=== PATIENT | male | born 1980 | race Caucasian/White ===

== ENCOUNTER 2019-07-30 20:43 | Emergency (ER) | payer BC ==
[2019-07-30] MEDS ORDERED: ALBUTEROL 2.5 MG/3 ML NEB SOL ONE (23:44)
[2019-07-30] MEDS ORDERED: IPRATROPIUM BROM 0.5MG/2.5ML ONE (23:44)
--- NOTE | 2019-07-31 01:19 | EDPHYS ---
Physician Documentation [facility] Name: Jim Boykin Age: 38 yrs Sex: Male : 1980 Arrival Date: 07/30/2019 Time: 20:48 Bed 7 Private MD: ED Physician Wilman Santos HPI: 07/30 23:30 This 38 yrs old Male presents to ER via Ambulatory with complaints of cp Shortness Of Breath. 23:30 The patient or guardian reports cough, intermittent brown sputum. cp 23:30 Onset: The symptoms/episode began/occurred 4 month(s) ago. cp 23:30 Severity of symptoms: in the emergency department the symptoms are unchanged, despite cp home interventions. 23:30 Associated signs and symptoms: Pertinent positives: sore throat, Pertinent negatives: cp chest pain, diarrhea, fever, vomiting. Patient reports he was seen by PCP in June 2019 and prescribed antibiotics. Symptoms continued so he went to urgent care who prescribed another 10 days of antibiotics and oral steroids. Patient reports he is currently taking steroids. Historical: - Allergies: 23:54 No Known Allergies; bb - Home Meds: 23:54 montelukast oral oral [Active]; Singulair Oral [Active]; Prednisone Oral [Active]; bb - PMHx: 23:54 None; bb - PSHx: 23:54 Ear Tubes; bb - Immunization history:: Last tetanus immunization: up to date Flu vaccine is not up to date. - Social history:: Smoking status: Patient/guardian denies using tobacco, Patient/guardian denies using alcohol, street drugs. - Ebola Screening: : Patient negative for fever greater than or equal to 101.5 degrees Fahrenheit, and additional compatible Ebola Virus Disease symptoms Patient denies exposure to infectious person Patient denies travel to an Ebola-affected area in the 21 days before illness onset. ROS: 23:35 Constitutional: Negative for body aches, chills, fever, poor PO intake. cp 23:35 Eyes: Negative for injury, pain, redness, and discharge. cp 23:35 Cardiovascular: Negative for chest pain, edema, palpitations. cp 23:35 ENT: Positive for sore throat, Negative for drainage from ear(s), ear pain, sinus cp congestion, sinus pain, difficulty swallowing, difficulty handling secretions. 23:35 Respiratory: Positive for cough, Negative for wheezing. 23:35 Abdomen/GI: Negative for abdominal pain, nausea, vomiting, and diarrhea. 23:35 : Negative for urinary symptoms. 23:35 Skin: Negative for cellulitis, rash. 23:35 Neuro: Negative for altered mental status, headache, syncope, weakness. 23:35 All other systems are negative. Exam: 23:45 Constitutional: The patient appears in no acute distress, alert, awake, comfortable, cp non-diaphoretic, non-toxic, well developed, well nourished. 23:45 Head/Face: Normocephalic, atraumatic. cp 23:45 Eyes: Periorbital structures: appear normal, Conjunctiva: normal, no exudate, no cp injection, Sclera: no appreciated abnormality, Lids and lashes: appear normal, bilaterally. 23:45 ENT: External ear(s): are unremarkable, Ear canal(s): are normal, clear, TM's: bulging, cp is not appreciated, bilaterally, dullness, bilaterally, erythema, is not appreciated, bilaterally, Nose: is normal, Mouth: is normal, Posterior pharynx: is normal, airway is patent, no erythema, no exudate. 23:45 Chest/axilla: Inspection: normal, Palpation: is normal, no crepitus, no tenderness. cp 23:45 Cardiovascular: Rate: normal, Rhythm: regular. 23:45 Respiratory: the patient does not display signs of respiratory distress, Respirations: normal, no use of accessory muscles, no retractions, no splinting, no tachypnea, labored breathing, is not present, Breath sounds: bronchial sounds, that are mild, are heard diffusely, decreased breath sounds, are not appreciated, stridor, is not appreciated, wheezing: is not appreciated. 23:45 Abdomen/GI: Inspection: abdomen appears normal, Bowel sounds: active, all quadrants, Palpation: abdomen is soft and non-tender, in all quadrants. 23:45 Back: pain, is absent, ROM is normal. 23:45 Skin: no rash present. 23:45 Neuro: Orientation: to person, place \T\ time. Mentation: is normal, Cerebellar function: is grossly normal, Motor: moves all fours, strength is normal, Sensation: is normal. Vital Signs: 21:17 BP 142 / 86; Pulse 86; Resp 20; Temp 98.5(O); Pulse Ox 97% on R/A; Weight 79.38 kg (R); fc Height 5 ft. 10 in. (177.80 cm) (R); Pain 6/10; 23:54 BP 143 / 83; Pulse 71; Resp 18 S; Pulse Ox 100% on Nebulizer Mask; bb 07/31 01:02 BP 134 / 77; Pulse 68; Resp 18; Pulse Ox 98% on R/A; ea 01:45 BP 130 / 74; Pulse 70; Resp 18; Temp 97.6(TE); Pulse Ox 99% on R/A; ea 07/30 21:17 Body Mass Index 25.11 (79.38 kg, 177.80 cm) fc MDM: 07/30 23:22 Patient medically screened. cp 07/31 00:00 Differential Diagnosis: Bronchitis Asthma Exacerbation Viral Syndrome Pneumonia. cp 01:17 Data reviewed: vital signs, nurses notes, lab test result(s), radiologic studies, plain cp films. 01:17 Test interpretation: by ED physician or midlevel provider: plain radiologic studies, cp chest xray negative for infiltrates. Counseling: I had a detailed discussion with the patient and/or guardian regarding: the historical points, exam findings, and any diagnostic results supporting the discharge/admit diagnosis, lab results, radiology results, the need for outpatient follow up, a family practitioner, to return to the emergency department if symptoms worsen or persist or if there are any questions or concerns that arise at home. Response to treatment: the patient's symptoms have markedly improved after treatment, and as a result, I will discharge patient. 07/31 00:36 Order name: Strep cp 07/31 01:39 Order name: Throat Culture EDKS 07/30 23:28 Order name: XRAY Chest Pa And Lat (2 Views) cp Administered Medications: 07/30 23:47 Drug: Albuterol - atroVENT (3:1) (2.5 mg - 0.5 mg) 3 ml Route: Nebulizer; ea 07/31 00:28 Follow up: Response: No adverse reaction ea Disposition: 06:07 Co-signature as Attending Physician, Wilman Santos MD. pkl Disposition: 07/31/19 01:18 Discharged to Home. Impression: Cough. - Condition is Stable. - Discharge Instructions: Cough, Adult, Form - Excuse from Work, School, or Physical Activity. - Prescriptions for Tessalon Perles 100 mg Oral Capsule - take 1 capsule by ORAL route every 8 hours As needed; 15 capsule. Albuterol Sulfate 90 mcg/actuation - inhale 1-2 puff by INHALATION route every 4-6 hours; 1 Inhaler. - Medication Reconciliation Form, Thank You Letter, Antibiotic Education, Prescription Opioid Use, Work release form form. - Follow up: Private Physician; When: 2 - 3 days; Reason: Recheck today's complaints. - Problem is an ongoing problem. - Symptoms have improved. Signatures: Dispatcher [employer] EDMS Wilman Santos MD MD pkl Chretien, Felicia, RN RN fc Danuta Lyn RN RN bb Joe Ospina PA PA cp Antunez, Elena, RN RN ea Corrections: (The following items were deleted from the chart) 01:54 01:18 07/31/2019 01:18 Discharged to Home. Impression: Cough. Condition is Stable. ea Forms are Medication Reconciliation Form, Thank You Letter, Antibiotic Education, Prescription Opioid Use. Follow up: Private Physician; When: 2 - 3 days; Reason: Recheck today's complaints. Problem is an ongoing problem. Symptoms have improved. cp
--- NOTE | 2019-07-31 01:19 | ER ---
Nurse's Notes [facility] Name: Jim Boykin Age: 38 yrs Sex: Male : 1980 Arrival Date: 07/30/2019 Time: 20:48 Bed 7 Private MD: Diagnosis: Cough Presentation: 07/30 21:17 Presenting complaint: Patient states: that he has a cough with clear sputum, wheezing fc and sore throat. Also having diarrhea but no nausea or vomiting. Pt was seen by PCP and given antibiotics, prednisone and Montelukast. States he is not getting any better. Transition of care: patient was not received from another setting of care. Onset of symptoms was April 2019. Risk Assessment: Do you want to hurt yourself or someone else? Patient reports no desire to harm self or others. Initial Sepsis Screen: Does the patient meet any 2 criteria? No. Patient's initial sepsis screen is negative. Does the patient have a suspected source of infection? No. Patient's initial sepsis screen is negative. Care prior to arrival: None. 21:17 Method Of Arrival: Ambulatory fc 21:17 Acuity: CARLITO 4 fc Triage Assessment: 21:17 General: Appears comfortable, Behavior is calm, cooperative, appropriate for age. Pain: fc Complains of pain in bilateral lower ribs Pain currently is 6 out of 10 on a pain scale. Quality of pain is described as aching, Pain began 3 months Is episodic, Aggravated by coughing. EENT: Reports nasal congestion. Neuro: Level of Consciousness is awake, alert, obeys commands, Oriented to person, place, time, situation, Appropriate for age. Cardiovascular: No deficits noted. Respiratory: Reports cough that is Airway is patent Respiratory effort is even, unlabored, Respiratory pattern is regular, symmetrical, Breath sounds with wheezes Onset: The symptoms/episode began/occurred gradually, the patient has mild shortness of breath. GI: No deficits noted. : No deficits noted. Derm: Skin is pink, warm \T\ dry. Musculoskeletal: Circulation, motion, and sensation intact. Capillary refill < 3 seconds, Range of motion: intact in all extremities. Historical: - Allergies: 23:54 No Known Allergies; bb - Home Meds: 23:54 montelukast oral oral [Active]; Singulair Oral [Active]; Prednisone Oral [Active]; bb - PMHx: 23:54 None; bb - PSHx: 23:54 Ear Tubes; bb - Immunization history:: Last tetanus immunization: up to date Flu vaccine is not up to date. - Social history:: Smoking status: Patient/guardian denies using tobacco, Patient/guardian denies using alcohol, street drugs. - Ebola Screening: : Patient negative for fever greater than or equal to 101.5 degrees Fahrenheit, and additional compatible Ebola Virus Disease symptoms Patient denies exposure to infectious person Patient denies travel to an Ebola-affected area in the 21 days before illness onset. Screenin:25 Abuse screen: Denies threats or abuse. Nutritional screening: No deficits noted. bb Tuberculosis screening: No symptoms or risk factors identified. Fall Risk None identified. Assessment: 23:25 General: Appears in no apparent distress. Behavior is calm, cooperative. Pain: bb Complains of pain in back. Neuro: Level of Consciousness is awake, alert, obeys commands, Oriented to person, place, time, situation. Cardiovascular: No deficits noted. Respiratory: Airway is patent Respiratory effort is even, unlabored, Respiratory pattern is regular, Breath sounds with crackles bilaterally. GI: No signs and/or symptoms were reported involving the gastrointestinal system. : No signs and/or symptoms were reported regarding the genitourinary system. Derm: Skin is pink, warm \T\ dry. Musculoskeletal: Circulation, motion, and sensation intact. 07/31 00:50 Reassessment: Patient and/or family updated on plan of care and expected duration. Pain ea level reassessed. Patient is alert, oriented x 3, equal unlabored respirations, skin warm/dry/pink. Awaiting on strep results. 01:50 Reassessment: Patient and/or family updated on plan of care and expected duration. Pain ea level reassessed. Patient is alert, oriented x 3, equal unlabored respirations, skin warm/dry/pink. Discharge instruction given to patient, verbalized the understanding of instruction. Pt left ED ambulatory accompanied by family, pt tolerating well. Vital Signs: 07/30 21:17 BP 142 / 86; Pulse 86; Resp 20; Temp 98.5(O); Pulse Ox 97% on R/A; Weight 79.38 kg (R); fc Height 5 ft. 10 in. (177.80 cm) (R); Pain 6/10; 23:54 BP 143 / 83; Pulse 71; Resp 18 S; Pulse Ox 100% on Nebulizer Mask; bb 07/31 01:02 BP 134 / 77; Pulse 68; Resp 18; Pulse Ox 98% on R/A; ea 01:45 BP 130 / 74; Pulse 70; Resp 18; Temp 97.6(TE); Pulse Ox 99% on R/A; ea 07/30 21:17 Body Mass Index 25.11 (79.38 kg, 177.80 cm) ED Course: 07/30 20:48 Patient arrived in ED. ds1 21:17 Arm band placed on Patient placed in waiting room. fc 21:21 Triage completed. 23:18 Joe Ospina PA is PHCP. cp 23:18 Wilman Santos MD is Attending Physician. cp 23:25 Patient has correct armband on for positive identification. Bed in low position. Call bb light in reach. Side rails up X 1. Adult w/ patient. Pulse ox on. NIBP on. 23:41 Patient moved to radiology via wheelchair. kw 23:41 X-ray completed. Patient tolerated procedure well. Patient moved back from radiology. kw 23:42 XRAY Chest Pa And Lat (2 Views) In Process Unspecified. EDMS 23:42 Aide Jaramillo, ALTAGRACIA is Primary Nurse. ea 07/31 01:53 No provider procedures requiring assistance completed. ea 01:53 Patient did not have IV access during this emergency room visit. ea Administered Medications: 07/30 23:47 Drug: Albuterol - atroVENT (3:1) (2.5 mg - 0.5 mg) 3 ml Route: Nebulizer; ea 07/31 00:28 Follow up: Response: No adverse reaction ea Outcome: 01:18 Discharge ordered by . cp 01:53 Discharged to home ambulatory, with family. ea 01:53 Condition: stable 01:53 Discharge instructions given to patient, Instructed on discharge instructions, follow up and referral plans. medication usage, Demonstrated understanding of instructions, follow-up care, medications, Prescriptions given X 2. 01:54 Patient left the ED. ea Signatures: Dispatcher [employer] EDAL Agatha Jasmine RN RN Maria Guadalupe Jaquez ds1 Lyn, Danuta, RN RN bb Mary, Joe Munoz PA PA cp Antunez, Elena, RN RN ea Corrections: (The following items were deleted from the chart) 01:53 01:53 IV discontinued, intact, bleeding controlled, No redness/swelling at site. ea Pressure dressing applied, ea
[2019-07-31 02:52] VITALS: TEMP 98.5
[2019-07-31 02:55] VITALS: BP 134/77; O2SAT 98
--- NOTE | 2019-07-31 09:32 | RAD REPORT ---
EXAM DESCRIPTION: Ben Coombs (2 Views)07/30/2019 11:45 pm CLINICAL HISTORY: Cough COMPARISON: 2014 FINDINGS: The lungs appear clear of acute infiltrate. The heart is normal size IMPRESSION: No acute abnormalities displayed
== END 2019-07-31 01:54 | disposition home or self-care (01) ==
LOC: ER 20:43
DX: R05 Cough (principal)
CPT/HCPCS: 71046; 87070; 87081; 94640; 99284